=== PATIENT | male | born 1975 | race Caucasian/White ===

== ENCOUNTER 2019-01-27 13:35 | Emergency (ER) | payer OTHER ==
[~2019-01-27] VITALS: Ht 157.5 cm; Wt 80.0 kg
[2019-01-27 13:38] VITALS: BP 144/84; PULSE 83; RESP 18; Ht 157.5 cm; Wt 80.0 kg
[2019-01-27] MEDS ORDERED: ALBUTEROL 0.083% (NEB) 2.5 MG/3 ML AMP NEB STA (15:18)
--- NOTE | 2019-01-27 15:25 | ERD ---
ER Documentation Chief Complaint Chief Complaint SLIGHT MIKE AFTER AUNT SPRAYED APPT LAST NIGHT HPI Patient is a 43 years old male with no known past medical history presenting to the clinic for difficulty breathing since 5 AM. Patient reports that his on rate pesticide yesterday at his house. Patient reports the smell is really strong however patient was able to sleep but woke up due to difficulty breathing. Patient denies cough, chest pain, dizziness, headache, fever, chills, night sweats, diaphoresis. Patient denies taking any OTC medication. Patient admits that he called poison control was informed that he should not be worried as the pesticide was not sprayed directly at him he has no symptoms of nausea, emesis, dizziness. ROS All systems reviewed and are negative except as per history of present illness. Allergies Allergies: Coded Allergies: No Known Drug Allergy (Verified Allergy, Unknown, 01/27/19) PMhx/Soc Medical and Surgical Hx: pt denies Medical Hx, pt denies Surgical Hx History of Surgery: No Anesthesia Reaction: No Hx Neurological Disorder: No Hx Respiratory Disorders: No Hx Cardiac Disorders: No Hx Psychiatric Problems: No Hx Miscellaneous Medical Probl: No Hx Alcohol Use: No Hx Substance Use: No Hx Tobacco Use: No Smoking Status: Never smoker Physical Exam Vitals Vital Signs Date Temp Pulse Resp B/P (MAP) Pulse Ox O2 O2 Flow FiO2 Time Delivery Rate 01/27/19 83 18 99 21 15:53 01/27/19 98.1 83 18 144/84 99 13:38 (104) Physical Exam Const: No acute distress Head: Atraumatic Resp: Clear to auscultation bilaterally. No rales, rhonchi, wheezing. Cardio: Regular rate and rhythm, no murmurs Neur: Awake and alert. CNII-XII intact. Psych: Normal Mood and Affect Results 24 hrs Current Medications Medications Dose Sig/Clarence Start Time Status Last (Trade) Ordered Route PRN Stop Time Admin Dose Reason Admin Albuterol 2.5 mg ONCE STAT 01/27/19 DC 01/27/19 (Proventil NEB 15:18 01/27/19 15:52 0.083% (Neb)) 15:20 Procedures/MDM Patient was seen and evaluated for difficulty breathing post pesticide inhalation. Nebulizer administered in ED with significant improvement of symptoms. Chest x-ray or further work-up not required for today's visit as patient has an unremarkable physical exam with low suspicious of pneumonia. Patient is stable ready for discharge. Follow-up with PCP. No treatment required for today's visit. Departure Diagnosis: Primary Impression: Difficulty breathing Condition: Stable Patient Instructions: Chemical Inhalation Referrals: [facility] Additional Instructions: Patient advised to return to the ED immediately for new or worsening symptoms. Patient advised to follow up with primary care provider in the next 24-48 hours. Patient verbalized understanding and agrees with treatment plan and course of action. If patient has no primary care they may follow up with [facility] + [facility] [address] [place] [id number] or [facility] [address] [place] [address] or [facility] [address] [place] [address] BRADEN SABILLON PA-C Jan 27, 2019 15:25
== END 2019-01-27 16:45 | disposition home or self-care (01) ==
LOC: FTE 13:35
DX: R06.00 Dyspnea, unspecified (principal); R06.2 Wheezing
CPT/HCPCS: 94664; Z7502; Z7610